=== PATIENT | male | born 1960 | race Caucasian/White ===

== ENCOUNTER → 2018-10-19 | Outpatient (CLI) | payer BC ==
--- NOTE | 2018-10-19 15:00 | MRI ---
EXAM DESCRIPTION: Lumbar Spine w/o Contrast CLINICAL HISTORY: RADICULOPATHY LUMBAR REGION COMPARISON: None Available. TECHNIQUE: MRI of the lumbar spine is performed according to our usual protocol with axial and sagittal multi sequence imaging. FINDINGS: Sagittal T2 images reveal decreased signal intensity consistent with desiccation of the intervertebral discs at all lumbar levels except L1-L2. Posterior annular bulges are most prominent at these levels as well. No prevertebral mass or aneurysm. Lower cord and conus appear normal. Tip of the conus is behind T12-L1. Sagittal T1 images reveal benign marrow signal characteristics. Normal T1 signal intensity and appearance of the lower cord and conus. Sagittal STIR images are negative for marrow edema within the vertebral bodies or posterior elements. No paraspinous fluid collection or cystic lesion. Axial T1 and T2-weighted images were obtained to evaluate the disc levels. L1-2: No posterior annular bulge or herniation. No spinal stenosis or neural foraminal narrowing. Mild facet hypertrophy. L2-3: Mild to moderate diffuse posterior annular bulge without focal herniation. No spinal stenosis or significant neural foraminal narrowing. Facets appear mildly hypertrophic with thickened ligamentum flavum contributing to moderate subarticular recess narrowing bilaterally. L3-4: Mild diffuse posterior annular bulge without spinal stenosis or significant neural foraminal narrowing. Moderate facet hypertrophy seen bilaterally with ligamentum flavum thickening causing moderately severe left and moderate right subarticular recess narrowing crowding the descending L4 nerve roots. L4-5: Moderate diffuse posterior annular bulge with superimposed midline right paracentral disc herniation measuring 7 mm in AP dimension and 1.7 cm in medial lateral width. This extends inferiorly 1.1 cm behind the upper third of L5. Moderate spinal stenosis with AP diameter spinal canal narrowed to 9 mm. Marked facet hypertrophic spurring right more than left with ligamentum flavum thickening contributes to severe right and moderately severe left subarticular recess narrowing compressing the descending right more than left L5 nerve roots. Mild bilateral neural foraminal narrowing. L5-S1: Mild diffuse posterior annular bulge without spinal stenosis. There is [id number] bilateral neural foraminal narrowing. Moderate facet hypertrophy bilaterally without significant subarticular recess or lateral recess compromise. Upper sacrum appears intact. No retroperitoneal mass or aneurysm. IMPRESSION: /Right paracentral L4-5 disc herniation compresses the descending right L5 nerve root in the subarticular recess and upper lateral recess. Multilevel facet hypertrophic spurring with posterior annular bulges narrowing the subarticular recesses at levels noted above. Electronically signed by: Adam Vegas MD 10/19/2018 2:58 PM CDT
== END ==
LOC: MRI 13:23
PROVIDERS: ATTEND Anesthesiology
DX: M51.16 Intervertebral disc disorders with radiculopathy, lumbar region (principal)

== ENCOUNTER 2019-02-21 05:29 | Day surgery (SDC) | payer BC ==
[2019-02-21] MEDS ORDERED: TROP 1%/CYCLOPEN 1%/PHENYL 2% DROPS OPHTH ONE (05:30)
[2019-02-21] MEDS ORDERED: MIDAZOLAM INJ 2 MG/2 ML VIAL ONE ×2 (10:41→10:45)
[2019-02-21] MEDS: PROPARACAINE 0.5% OPHTH SOL 15 ML BTTL LEFT_EYE ONE (10:45)
[2019-02-21] MEDS: LIDOCAINE 1% MPF 2 ML VIAL INJ ONE ×2 (10:55→11:00)
[2019-02-21] MEDS: MOXIFLOXACIN HCL (OPHTH) 1 DROP DROPS LEFT_EYE ONE ×2 (10:55→11:12)
[2019-02-21] MEDS: TOBRAMYCIN SULF 0.3 % OPHT SOL 1 DROP LEFT_EYE ONE ×2 (10:56→11:12)
[2019-02-21] MEDS: DEXAMETHASONE 0.1% OPHTH SOL 1 DROP LEFT_EYE ONE ×2 (10:56→11:12)
[2019-02-21] MEDS: BRIMONIDINE 0.2% OPHTH DROPS LEFT_EYE ONE ×2 (10:56→11:12)
[2019-02-21] MEDS ORDERED: fentaNYL CITRATE INJ 50 MCG/ML AMP ONE ×2 (10:58→11:04)
== END 2019-02-21 12:00 | disposition home or self-care (01) ==
LOC: AMB 05:29
PROVIDERS: ATTEND Ophthalmology
DX: H25.042 Posterior subcapsular polar age-related cataract, left eye (principal)
CPT/HCPCS: 00142; 66984; J2250; J3010